=== PATIENT | female | born 1965 | race Caucasian/White ===

== ENCOUNTER 2021-08-11 14:53 | Inpatient (IN) | payer BC, MEDICAID ==
[~2021-08-11] VITALS: Ht 175.3 cm; Wt 95.3 kg
[2021-08-11] MEDS ORDERED: METF-960 PO (15:15)
[2021-08-11] MEDS ORDERED: TOPI100T37 PO (15:16)
[2021-08-11] MEDS ORDERED: OMEP20 PO (15:16)
[2021-08-11] MEDS ORDERED: MINO100C66 PO (15:16)
[2021-08-11] MEDS ORDERED: ASPI81TA87 PO (15:17)
[2021-08-11] MEDS ORDERED: ONDA-104 PO (15:17)
[2021-08-11] MEDS ORDERED: BACL10TA PO (15:18)
[2021-08-11] MEDS ORDERED: LORA5SOL7 PO (15:19)
[2021-08-11 15:29] LABS: BASOPHILS % (AUTO) 0.6 % (0.0-2.0); EOSINOPHILS % (AUTO) 1.5 % (1.0-6.0); HEMATOCRIT 40.8 % (36-46); HEMOGLOBIN 13.2 g/dL (12.0-16.0); LYMPHOCYTES # (AUTO) 2.5 K/uL (1.0-4.8); LYMPHOCYTES % (AUTO) 36.3 % (22.0-44.0); MEAN CORPUSCULAR HEMOGLOBIN 28.1 pg (26.0-34.0); MEAN CORPUSCULAR HGB CONC 32.4 G/dL (31.0-37.0); MEAN CORPUSCULAR VOLUME 87 fL (80-100); MONOCYTES # (AUTO) 0.5 K/uL (0.1-1.0); MONOCYTES % (AUTO) 6.7 % (2.0-9.0); NEUTROPHILS # (AUTO) 3.8 K/uL (1.8-7.7); NEUTROPHILS % (AUTO) 54.9 % (40.0-70.0); PLATELET COUNT (AUTO) 194 K/uL (150-450); RED BLOOD CELL COUNT(AUTO) 4.69 MIL/uL (4.00-5.20); RED CELL DISTRIBUTION WIDTH 16.6 % (11.5-14.5)
[2021-08-11 15:40] LABS: ANION GAP 14 mmol/L (8-16); CALCIUM, TOTAL 9.9 mg/dL (8.8-10.5); CARBON DIOXIDE 23 mmol/L (22-29); CHLORIDE 107 mmol/L (98-107); CREATININE 0.78 mg/dL (0.60-1.30); GLOMERULAR FILTR. RATE CALC > 60 mL/min (>60); GLUCOSE,RANDOM 122 mg/dL (70-110); POTASSIUM 4.1 mmol/L (3.5-5.1); SODIUM SERUM 144 mmol/L (136-145); UREA NITROGEN, BLOOD 5 mg/dL (7-18)
[2021-08-11 15:51] LABS: ALANINE AMINOTRANSFERASE 24 U/L (12-78); ALBUMIN 3.8 g/dL (3.4-5.0); ALKALINE PHOSPHATASE 88 U/L (46-116); ASPARTATE AMINOTRANSFERASE 35 U/L (15-37); BILIRUBIN,TOTAL 0.5 mg/dL (0.1-1.0); CHOL/HDL RATIO 2.5 (3.9-5.7); CHOLESTEROL 158 mg/dL (131-200); HDL CHOLESTEROL 63 mg/dL (40-60); LDL CHOL (CALC.) 73 mg/dL (0-130); LIPASE 74 U/L (73-393); TOTAL PROTEIN, SERUM 8.2 g/dL (6.4-8.2); TRIGLYCERIDES 109 mg/dL (15-150)
[2021-08-11 16:20] LABS: COVID AG,FIA SOURCE NASOPHARYNGEAL
[2021-08-11] MEDS ORDERED: LORA10TA7 PO (19:14)
[2021-08-11] MEDS ORDERED: CHOL10002 PO (19:14)
[2021-08-11] MEDS ORDERED: ONDA4TAB10 PO (19:14)
[2021-08-11] MEDS ORDERED: LORazepam 2 MG TABLET PO PRN (19:15)
[2021-08-11 22:06] LABS: APPEARANCE,URINE RPT (CLEAR); GLUCOSE, URINE (UA) NEGATIVE (NEGATIVE); KETONES,URINE >=80 mg/dL (NEGATIVE); LEUKOCYTE ESTERASE ,URINE MODERATE (NEGATIVE); NITRATE,URINE NEGATIVE (NEGATIVE); OCCULT BLOOD,URINE NEGATIVE (NEGATIVE); PROTEIN,URINE POS 1+ (NEGATIVE); UROBILINOGEN,URINE 0.2 mg/dL (<=1.0)
[2021-08-11 22:07] LABS: BILIRUBIN,URINE PRELIM. POSITIVE (NEGATIVE)
[2021-08-11 22:15] LABS: AMPHET/METH SCREEN,URINE NEGATIVE (NEGATIVE); BARBITURATE SCREEN, URINE NEGATIVE (NEGATIVE); BENZODIAZEPINES SCREEN,URINE POSITIVE (NEGATIVE); CANNABINOID SCREEN,URINE NEGATIVE (NEGATIVE); COCAINE SCREEN,URINE NEGATIVE (NEGATIVE); METHADONE SCREEN, URINE NEGATIVE (NEGATIVE); OPIATE SCREEN,URINE NEGATIVE (NEGATIVE)
[2021-08-11 22:24] LABS: PHENCYCLIDINE SCREEN,URINE NEGATIVE (NEGATIVE)
[2021-08-11 22:35] LABS: BACTERIA,URINE Moderate /HPF (None Seen); RBC,URINE 0-2 /HPF (0-2); WBC,URINE 26-50 /HPF (0-5)
[2021-08-12] MEDS: ZOLPIDEM TARTRATE 10 MG TABLET PO PRN ×2 (02:05→21:52)
[2021-08-12] MEDS: HALOPERIDOL 5 MG TABLET PO PRN ×2 (02:05→21:52)
[2021-08-12 11:11] VITALS: BP 99/68
[2021-08-12] MEDS ORDERED: LORATADINE 10 MG TABLET PO PRN (14:15)
[2021-08-12] MEDS ORDERED: ACETAMINOPHEN 325 MG TABLET PO PRN (15:45)
[2021-08-12] MEDS ORDERED: MAG HYDROX/AL HYDROX/SIMETH ES 30 ML SUSPENSION UDCUP PO PRN (15:45)
[2021-08-12] MEDS ORDERED: NICOTINE 14 MG/24 HOUR PATCH TD PRN (15:45)
[2021-08-12] MEDS ORDERED: ALBUTEROL SULFATE HFA 90 MCG/PUFF 8 GM INHALER IH PRN (15:45)
[2021-08-12] MEDS ORDERED: PETROLATUM,WHITE 28 GM JELLY TP PRN (15:45)
[2021-08-12] MEDS ORDERED: DOCUSATE SODIUM 100 MG CAPSULE PO PRN (15:45)
[2021-08-12] MEDS ORDERED: MAGNESIUM HYDROXIDE SUSPENSION 30 ML UDCUP PO PRN (15:45)
[2021-08-12] MEDS ORDERED: CloNIDine HCL 0.1 MG TABLET PO PRN (15:45)
[2021-08-12] MEDS ORDERED: GuaiFENesin/D-METHORPHAN [SUGAR-FREE] 200-20MG/10 ML SYRUP UDCUP PO PRN (15:45)
[2021-08-12 17:09] VITALS: BP 139/91
[2021-08-12] MEDS: MetFORMIN HCL 500 MG TABLET PO SCH (17:17)
[2021-08-12] MEDS: TOPIRAMATE 100 MG TABLET PO SCH (17:17)
[2021-08-13] MEDS: MINOCYCLINE HCL 100 MG CAPSULE PO SCH (07:08)
[2021-08-13] MEDS: MetFORMIN HCL 500 MG TABLET PO SCH ×3 (07:08→17:55)
[2021-08-13] MEDS: ASPIRIN 81 MG CHEWABLE TABLET PO SCH (09:05)
[2021-08-13] MEDS: CHOLECALCIFEROL (VIT D3) 1,000 UNITS [25 MCG] TABLET PO SCH (09:05)
[2021-08-13] MEDS: OMEPRAZOLE 20 MG CAPSULE PO SCH (09:06)
[2021-08-13] MEDS: TOPIRAMATE 100 MG TABLET PO SCH ×2 (09:06→17:55)
[2021-08-13 09:46] VITALS: BP 117/80
[2021-08-13] MEDS: FLUoxetine HCL 20 MG CAPSULE PO SCH (11:41)
[2021-08-13 16:57] VITALS: BP 119/80
[2021-08-13 17:34] VITALS: BP 109/60
[2021-08-13] MEDS: ZOLPIDEM TARTRATE 10 MG TABLET PO PRN (20:49)
[2021-08-14] MEDS: MetFORMIN HCL 500 MG TABLET PO SCH ×3 (06:31→16:25)
[2021-08-14] MEDS: MINOCYCLINE HCL 100 MG CAPSULE PO SCH (06:31)
[2021-08-14 09:00] VITALS: BP 108/76
[2021-08-14] MEDS: OMEPRAZOLE 20 MG CAPSULE PO SCH (09:28)
[2021-08-14] MEDS: CHOLECALCIFEROL (VIT D3) 1,000 UNITS [25 MCG] TABLET PO SCH (09:28)
[2021-08-14] MEDS: TOPIRAMATE 100 MG TABLET PO SCH ×2 (09:28→16:25)
[2021-08-14] MEDS: ASPIRIN 81 MG CHEWABLE TABLET PO SCH (09:28)
[2021-08-14] MEDS: FLUoxetine HCL 20 MG CAPSULE PO SCH (09:28)
[2021-08-14 16:00] VITALS: BP 107/73
[2021-08-15 02:00] VITALS: BP 115/71
[2021-08-15] MEDS: MetFORMIN HCL 500 MG TABLET PO SCH ×3 (06:37→16:55)
[2021-08-15] MEDS: MINOCYCLINE HCL 100 MG CAPSULE PO SCH (06:37)
[2021-08-15 08:00] VITALS: BP 100/77
[2021-08-15] MEDS: ASPIRIN 81 MG CHEWABLE TABLET PO SCH (09:59)
[2021-08-15] MEDS: OMEPRAZOLE 20 MG CAPSULE PO SCH (10:00)
[2021-08-15] MEDS: FLUoxetine HCL 20 MG CAPSULE PO SCH (10:00)
[2021-08-15] MEDS: TOPIRAMATE 100 MG TABLET PO SCH ×2 (10:00→16:55)
[2021-08-15] MEDS: CHOLECALCIFEROL (VIT D3) 1,000 UNITS [25 MCG] TABLET PO SCH (10:00)
[2021-08-15 16:00] VITALS: BP 134/83
[2021-08-15] MEDS: ZOLPIDEM TARTRATE 10 MG TABLET PO PRN (20:36)
[2021-08-16 06:34] VITALS: BP 134/89
[2021-08-16] MEDS: MINOCYCLINE HCL 100 MG CAPSULE PO SCH (06:55)
[2021-08-16] MEDS: MetFORMIN HCL 500 MG TABLET PO SCH ×3 (06:55→16:48)
[2021-08-16] MEDS: TOPIRAMATE 100 MG TABLET PO SCH ×2 (08:47→16:48)
[2021-08-16] MEDS: ASPIRIN 81 MG CHEWABLE TABLET PO SCH (08:47)
[2021-08-16] MEDS: OMEPRAZOLE 20 MG CAPSULE PO SCH (08:47)
[2021-08-16] MEDS: CHOLECALCIFEROL (VIT D3) 1,000 UNITS [25 MCG] TABLET PO SCH (08:47)
[2021-08-16] MEDS: FLUoxetine HCL 20 MG CAPSULE PO SCH (08:47)
[2021-08-16 08:57] VITALS: BP 120/84
[2021-08-16 08:58] VITALS: BP 120/84
[2021-08-16 17:29] VITALS: BP 135/81
[2021-08-16] MEDS: ONDANSETRON HCL 4 MG TABLET PO PRN (18:32)
[2021-08-16] MEDS: ZOLPIDEM TARTRATE 10 MG TABLET PO PRN (20:52)
[2021-08-17] MEDS: MINOCYCLINE HCL 100 MG CAPSULE PO SCH (06:39)
[2021-08-17] MEDS: MetFORMIN HCL 500 MG TABLET PO SCH ×3 (06:39→16:57)
[2021-08-17] MEDS: OMEPRAZOLE 20 MG CAPSULE PO SCH (08:30)
[2021-08-17] MEDS: FLUoxetine HCL 20 MG CAPSULE PO SCH (08:30)
[2021-08-17] MEDS: TOPIRAMATE 100 MG TABLET PO SCH ×2 (08:30→16:57)
[2021-08-17] MEDS: CHOLECALCIFEROL (VIT D3) 1,000 UNITS [25 MCG] TABLET PO SCH (08:30)
[2021-08-17] MEDS: ASPIRIN 81 MG CHEWABLE TABLET PO SCH (08:30)
[2021-08-17 09:21] LABS: COVID AG,FIA SOURCE NASAL SWAB
[2021-08-17 09:48] VITALS: BP 106/73
[2021-08-17 16:23] VITALS: BP 133/81
[2021-08-17] MEDS: ONDANSETRON HCL 4 MG TABLET PO PRN (19:25)
[2021-08-17] MEDS: ZOLPIDEM TARTRATE 10 MG TABLET PO PRN (20:30)
[2021-08-18] MEDS: MetFORMIN HCL 500 MG TABLET PO SCH ×3 (06:45→17:19)
[2021-08-18 08:00] VITALS: BP 123/84
[2021-08-18] MEDS: TOPIRAMATE 100 MG TABLET PO SCH ×2 (08:31→17:19)
[2021-08-18] MEDS: FLUoxetine HCL 20 MG CAPSULE PO SCH (08:31)
[2021-08-18] MEDS: CHOLECALCIFEROL (VIT D3) 1,000 UNITS [25 MCG] TABLET PO SCH (08:31)
[2021-08-18] MEDS: ASPIRIN 81 MG CHEWABLE TABLET PO SCH (08:32)
[2021-08-18] MEDS: OMEPRAZOLE 20 MG CAPSULE PO SCH (08:32)
[2021-08-18 16:26] VITALS: BP 132/88
[2021-08-18] MEDS: ZOLPIDEM TARTRATE 10 MG TABLET PO PRN (20:30)
[2021-08-19 03:18] VITALS: BP 124/77
[2021-08-19] MEDS: MetFORMIN HCL 500 MG TABLET PO SCH ×3 (06:30→16:33)
[2021-08-19] MEDS: ASPIRIN 81 MG CHEWABLE TABLET PO SCH (08:51)
[2021-08-19] MEDS: FLUoxetine HCL 20 MG CAPSULE PO SCH (08:51)
[2021-08-19] MEDS: OMEPRAZOLE 20 MG CAPSULE PO SCH (08:51)
[2021-08-19] MEDS: CHOLECALCIFEROL (VIT D3) 1,000 UNITS [25 MCG] TABLET PO SCH (08:52)
[2021-08-19] MEDS: TOPIRAMATE 100 MG TABLET PO SCH ×2 (08:52→16:33)
[2021-08-19 09:10] VITALS: BP 133/87
[2021-08-19 16:46] VITALS: BP 121/82
[2021-08-19] MEDS: ZOLPIDEM TARTRATE 10 MG TABLET PO PRN (20:51)
[2021-08-19] MEDS: ONDANSETRON HCL 4 MG TABLET PO PRN (20:57)
[2021-08-20] MEDS: MetFORMIN HCL 500 MG TABLET PO SCH ×3 (06:45→17:00)
[2021-08-20 08:00] VITALS: BP 112/77
[2021-08-20] MEDS: CHOLECALCIFEROL (VIT D3) 1,000 UNITS [25 MCG] TABLET PO SCH (08:23)
[2021-08-20] MEDS: FLUoxetine HCL 20 MG CAPSULE PO SCH (08:23)
[2021-08-20] MEDS: ASPIRIN 81 MG CHEWABLE TABLET PO SCH (08:23)
[2021-08-20] MEDS: OMEPRAZOLE 20 MG CAPSULE PO SCH (08:23)
[2021-08-20] MEDS: TOPIRAMATE 100 MG TABLET PO SCH ×2 (08:24→17:00)
[2021-08-20] MEDS ORDERED: FLUO20CA36 PO (13:20)
[2021-08-20 17:54] VITALS: BP 127/82
== END 2021-08-20 18:45 | disposition home or self-care (01) | DRG 753 ==
LOC: EMS 14:59 → 3EI 08-12 07:46
PROVIDERS: ADMIT Psychiatry & Neurology Child & Adolescent Psychiatry; ATTEND Psychiatry & Neurology Child & Adolescent Psychiatry
DX: F31.9 Bipolar disorder, unspecified (principal); E11.9 Type 2 diabetes mellitus without complications; R45.851 Suicidal ideations; E66.9 Obesity, unspecified; G40.909 Epilepsy, unspecified, not intractable, without status epilepticus; G47.00 Insomnia, unspecified; K21.9 Gastro-esophageal reflux disease without esophagitis; Z59.00 Homelessness unspecified; Z86.73 Personal history of transient ischemic attack (TIA), and cerebral infarction without residual deficits; Z20.822 Contact with and (suspected) exposure to COVID-19
CPT/HCPCS: 71045; 76700; 80053; 80061; 81001; 83690; 84484; 85025; 87086; 93005; 99285; G0480; Q0162; 36415-L1; 36415-TC